=== PATIENT | male | born 1980 | race Caucasian/White ===

== ENCOUNTER 2018-10-28 03:19 | Emergency (ER) | payer OTHER ==
[2018-10-28] MEDS: CEPHALEXIN 500 MG CAP PO (03:59)
[2018-10-28] MEDS: TRIMETHOPRIM/SULFAMETHOX (DS) TAB PO (03:59)
[2018-10-28] MEDS: DIPHENHYDRAMINE 25 MG CAP PO (03:59)
[2018-10-28] MEDS: ACETAMINOPHEN 325 MG TAB PO (03:59)
== END 2018-10-28 04:07 | disposition home or self-care (01) ==
LOC: FTE 03:19
DX: S60.861A Insect bite (nonvenomous) of right wrist, initial encounter (principal); L08.9 Local infection of the skin and subcutaneous tissue, unspecified; W57.XXXA Bitten or stung by nonvenomous insect and other nonvenomous arthropods, initial encounter; Y92.9 Unspecified place or not applicable
CPT/HCPCS: 99283